=== PATIENT | male | born 1970 ===

== ENCOUNTER 2021-07-15 14:52 | Outpatient (CLI) | payer OTHER, SELFPAY ==
--- NOTE | ~2021-07-15 | XR_ITS ---
EXAMINATION: XR knee LT min 4V DATE: 07/15/2021 15:14 INDICATION: Left knee pain, acute onset. TECHNIQUE: 4 views of left knee including standing views were obtained. COMPARISON: None. FINDINGS: Bone alignment is normal. No fracture. There is mild tricompartmental osteoarthritis charac terized by tiny marginal osteophytes. No joint space narrowing. No knee joint effusion. There is prep atellar soft tissue swelling. IMPRESSION: 1. Mild left knee osteoarthritis. Reviewed, dictated and finalized at location A.
== END 2021-07-15 14:53 | disposition home or self-care (01) ==
PROVIDERS: PCP Family Medicine; Visit Provider Physician Assistant
DX: M17.12 Unilateral primary osteoarthritis, left knee (principal)
CPT/HCPCS: 73564

== ENCOUNTER 2025-08-02 10:06 | Emergency (ER) | payer OTHER, SELFPAY ==
[2025-08-02 10:15] VITALS: BP 131/85; PULSE 80; RESP 16; TEMP 36.1; O2SAT 100
[2025-08-02 11:03] LABS: EDSTREPNEGPOS1 Positive (Negative)
--- NOTE | 2025-08-02 12:08 | ED.URI ---
HPI - URI/Sore Throat General Chief Complaint: Upper Respiratory Infection Stated Complaint: Sore Throat Time Seen by Provider: 08/02/25 11:15 Source: patient and RN notes reviewed Mode of arrival: ambulatory Limitations: no limitations History of Present Illness HPI Narrative: 54-year-old male presents [facility] complaining of sore throat since last night. Patient reports mild congestion. Patient denies fevers, body aches, chills, nausea vomiting, diarrhea, chest pain, difficulty breathing, or any other upper respiratory symptoms. Patient has a history of diabetes. Patient's attending help with symptoms. Related Data Home Medications ?Medication ?Instructions ?Recorded ?Confirmed ?Last Taken ?Type glimepiride 1 mg tablet 1 mg PO BID 08/21/19 08/02/25 Unknown History metformin 500 mg tablet,extended 1,000 mg PO BID 08/21/19 08/02/25 Unknown History release 24 hr Held on 08/02/25. Instructions: Order Change atorvastatin 20 mg tablet mg 08/02/25 Unknown History dapagliflozin propaned 10 PO 08/02/25 Unknown History mg-metformin ER 1,000 mg tablet,ext rel 24hr (Xigduo XR) losartan 50 mg tablet mg 08/02/25 Unknown History Allergies Allergy/AdvReac Type Severity Reaction Status Date / Time No Known Allergies Allergy Verified 08/02/25 10:16 Review of Systems Review of Systems: CONSTITUTIONAL: Denies fever, chills, body aches, or sweats. EYES: Denies visual changes, redness, or discharge. ENT: Negative for for rhinorrhea or otalgia. Positive for sore throat and congestion. CARDIOVASCULAR: Denies chest pain, palpitations, or edema. RESPIRATORY: Negative for cough or dyspnea. GASTROINTESTINAL: Denies abdominal pain, nausea, vomiting, or diarrhea. GENITOURINARY: Denies dysuria or hematuria. SKIN: Denies rash or itching. MUSCULOSKELETAL: Denies back pain, joint pain, or myalgia. NEUROLOGIC: Denies headache, numbness, or weakness. PSYCHIATRIC: Denies anxiety or depression. All other systems reviewed are negative, except as documented in HPI. [facility] Family History Family History Other Diabetes mellitus Family history of thyroid disease Social History Social History (Reviewed 10/23/25 @ 12:10 by TRICIA Briones Smoking status: Never smoker Alcohol intake: never Substance use: never Living arrangements: with family Occupation/Education: occupation Gender identity (if verbalized by the patient): Male Sexual Orientation (if Verbalized by the Patient): Straight or Heterosexual Spiritual care concerns: No Comments At the time of my signature, I reviewed and agree with the nursing past medical, surgical, social, and family history. There is no relevant family history pertinent to the patient complaint. Exam Narrative: GENERAL: This is a well-nourished, well-developed adult, in no apparent distress. They are non ill-appearing, nontoxic appearing. HEAD: normocephalic, atraumatic. EYES: Sclera clear/white. Vision is grossly intact. Conjunctiva normal bilaterally. Extraocular movements intact. EARS: External ears normal, auditory canals clear and without drainage, TMs without erythema or perforation. Hearing grossly intact. NOSE: External nose normal with no obvious nasal discharge, nasal turbinates erythemic without swelling., no rhinorrhea. THROAT: Mucous membranes moist, posterior pharynx erythematous without exudate. Uvula is midline. Postnasal drip present. NECK: Neck supple, non-tender without lymphadenopathy, masses or thyromegaly. CARDIOVASCULAR: Regular rate and rhythm without murmurs, gallops, or rubs. RESPIRATORY: Clear to auscultation. Breath sounds equal bilaterally. No wheezes, rales, or rhonchi. SKIN: warm, Dry, intact with no suspicious lesions or rash, good texture and turgor. NEURO: awake, alert, and oriented to person, place and time. There were no obvious focal neurologic abnormalities. EXTREMITIES: No joint tenderness, effusion, or edema noted. BACK: Nontender without deformity. Course Course Emergency Course: Portions of this record may have been created with voice recognition software Level of Care: Express Care Visit Vital Signs Vital signs: Vital Signs Temperature 96.9 F L 08/02/25 10:15 Pulse Rate 80 08/02/25 10:15 Respiratory Rate 16 08/02/25 10:15 Blood Pressure 131/85 08/02/25 10:15 Pulse Oximetry 100 08/02/25 10:15 Temperature 96.9 F L 08/02/25 10:15 Pulse Rate 80 08/02/25 10:15 Respiratory Rate 16 08/02/25 10:15 Blood Pressure 131/85 08/02/25 10:15 Pulse Oximetry 100 08/02/25 10:15 MDM - URI/Sore Throat MDM Narrative Medical decision making narrative: Rapid strep positive. Patient likely a strep pharyngitis. Will treat with amoxicillin. Discussed physical exam findings. Advised supportive measures and signs/symptoms to go to the ER. Pt is appropriate for outpt treatment and f/u. Differential Diagnosis Differential diagnosis: Likely upper respiratory infection, sinusitis, viral infection and pharyngitis Lab Data Labs: Lab Results 08/02/25 Range/Units 10:13 POC Grp A Strep Screen Positive (Negative) Discharge Plan Discharge Clinical Impression: Pharyngitis Patient Disposition: Home Condition: Stable Instructions: Antibiotic Form, Strep Throat (ED) Additional Instructions: You tested positive for strep throat. ?Please take the amoxicillin as prescribed until gone. ?You will be contagious for 24 hours after starting the medication. ?After 24 hours on antibiotics throw tooth brush away and start using a new one. Wash your sheets and cup/water bottle that is used daily. Do not share drinks. Take Tylenol or Ibuprofen as needed for pain or fever, follow instructions on the bottle. Rest and stay hydrated. ?Follow up with your PCP in 3 days if symptoms are not improving. ?Go to the ER immediately if you develop worsening symptoms such as shortness of breath, difficulty swallowing. ? Patient Language: Urdu Prescriptions: New amoxicillin 500 mg tablet 500 mg PO Q12H 10 Days Qty: 20 0RF No Action atorvastatin 20 mg tablet dapaglifloz propaned-metformin [Xigduo XR] 10-1,000 mg tablet, IR - ER, biphasic 24hr PO losartan 50 mg tablet metformin 500 mg tablet extended release 24 hr 1,000 mg PO BID glimepiride 1 mg tablet 1 mg PO BID Rx Instructions: Take 1 tablet with breakfast and supper daily blood sugar diagnostic [ReliOn Prime Test Strips] Strip See Rx Instructions .ROUTE .COMPLEX Qty: 300 0RF Dose Instruction: USE TO CHECK BLOOD SUGAR TWO TO THREE TIMES DAILY Rx Instructions: USE TO CHECK BLOOD SUGAR TWO TO THREE TIMES DAILY Follow-up/Referrals: Neal Bradley MD [Primary Care Provider, Family Practice] Stand Alone Forms: Work/School Release IP Time of Disposition: 11:24
== END 2025-08-02 11:28 | disposition home or self-care (01) ==
PROVIDERS: PCP Family Medicine
DX: J02.9 Acute pharyngitis, unspecified (principal); E11.9 Type 2 diabetes mellitus without complications; Z79.84 Long term (current) use of oral hypoglycemic drugs; I10 Essential (primary) hypertension; E78.00 Pure hypercholesterolemia, unspecified
CPT/HCPCS: 87880; 99213; G0463